=== PATIENT | female | born 1990 | race Caucasian/White ===

== ENCOUNTER 2017-03-25 00:01 | Emergency (ER) | payer OTHER | END 2017-03-25 07:02 | disposition home or self-care (01) | LOC: ER1 00:01 | DX: L02.411 Cutaneous abscess of right axilla (principal); L03.111 Cellulitis of right axilla; F17.210 Nicotine dependence, cigarettes, uncomplicated; Z88.0 Allergy status to penicillin | CPT/HCPCS: 10061; 84703; 87070; 87077; 87186; 87205; 99283 ==